=== PATIENT | female | born 1965 ===

== ENCOUNTER 2021-01-23 10:18 | Day surgery (SDC) | payer OTHER | END 2021-01-23 15:40 | disposition home or self-care (01) | LOC: AMB-ENDOS 10:18 | PROVIDERS: ATTEND Surgery | DX: K62.89 Other specified diseases of anus and rectum (principal); Z20.822 Contact with and (suspected) exposure to COVID-19; Z12.11 Encounter for screening for malignant neoplasm of colon ==